=== PATIENT | male | born 2000 | race Caucasian/White ===

== ENCOUNTER 2024-01-02 23:43 | Emergency (ER) | payer OTHER ==
[~2024-01-02] VITALS: Ht 190.5 cm; Wt 87.3 kg
[2024-01-03] MEDS: NS 1,000 ML IV ONE (00:55)
[2024-01-03] MEDS: METOCLOPRAMIDE INJ 10MG/2ML VIAL IV ONE (00:55)
[2024-01-03] MEDS: ACETAMINOPHEN 325 MG TAB PO ONE (01:35)
[2024-01-03 02:13] VITALS: BP 124/80; O2SAT 99
[2024-01-03] MEDS: KETOROLAC 30 MG/ML 1ML VIAL IV ONE (02:49)
== END 2024-01-03 03:59 | disposition home or self-care (01) ==
LOC: M ED 23:43 → EDBD 23:43 → M ED 01-03 03:59
DX: S06.300A Unspecified focal traumatic brain injury without loss of consciousness, initial encounter (principal); R51.9 Headache, unspecified; M25.551 Pain in right hip; W17.89XA Other fall from one level to another, initial encounter; E04.1 Nontoxic single thyroid nodule; Y92.89 Other specified places as the place of occurrence of the external cause; Y93.89 Activity, other specified; Y99.1 Military activity
CPT/HCPCS: 70450; 70486; 72125; 73502; 96374; 96375; 99291; J1100; J1885; J2765